=== PATIENT | female | born 1970 | race Caucasian/White ===

== ENCOUNTER → 2017-11-28 | Outpatient (CLI) | payer OTHER | LOC: FIMAGING 10:19 | PROVIDERS: ATTEND Orthopaedic Surgery | DX: Z01.818 Encounter for other preprocedural examination (principal); M17.12 Unilateral primary osteoarthritis, left knee ==

== ENCOUNTER 2018-02-05 05:57 | Observation (INO) | payer OTHER ==
[~2018-02-05 05:57] MED LIST: ROPIVACAINE 0.2% 80 MG, EPINEPHrine 0.2 MG, KETOROLAC TROMETHAMINE 30 MG, morphINE 10 M... IU ONE
[2018-02-05] MEDS ORDERED: VANCOMYCIN PHARMACY TO DOSE MISC ONE (06:00)
[2018-02-05] MEDS ORDERED: VANCOMYCIN HCL/NORMAL SALINE 250 ML IV ONE (06:00)
[2018-02-05] MEDS ORDERED: TRANEXAMIC ACID 1,000 MG in NS 100 ML IV ONE (06:00)
--- NOTE | 2018-02-05 06:20 | PDHPUP ---
History & Physical Update H&P update statement: This history and physical update is based on an assessment of the patient which was completed after admission or registration (within 24 hours), but prior to the surgery/procedure. H&P update: no change in patient's condition since H&P completed
--- NOTE | 2018-02-05 06:23 | PDIAF ---
- Diagnosis Diagnosis: left knee arthritis Code Status: Full Code - Medication Management Discharge Medications: Medications to Continue on Transfer Abilify 01/22/18 [Last Taken Unknown] Ativan 01/22/18 [Last Taken Unknown] Cymbalta 01/22/18 [Last Taken Unknown] Lamictal 01/22/18 [Last Taken Unknown] Protonix 01/22/18 [Last Taken Unknown] Provigil 01/22/18 [Last Taken Unknown] Synthroid 01/22/18 [Last Taken Unknown] Discharge Medications: Refer to the Discharge Home Medication list for PRN reason. - Orders Services needed: Physical Therapy Diet Recommendation: no restrictions on diet Diet Texture: Regular Texture Diet Activity/Weight Bearing Restrictions: wbat. rom as riley. ice prn. may shower without bandage. no soaking. daily dressing change if dressing becomes saturated. seek attn for increasing pain, cp, sob, drainage, redness or other focal complaint. f/u at two weeks Additional Instructions: wbat rom as riley ice prn may shower without bandage no soaking daily dressing change if dressing becomes saturated seek attn for increasing pain, cp, sob, drainage, redness or other focal complaint f/u at two weeks TOTAL JOINT ARTHROPLASTY DISCHARGE INSTRUCTIONS 1. Your surgeon follows the [facility] protocol for reducing your risk of DVT (blood clots) following surgery. Medication will be ordered to prevent blood clots. A sudden increase in calf pain and/or swelling could indicate a blood clot in your leg. If this occurs, please call your surgeon or his/her industrial hire sales assistant. An ultrasound of the leg may be necessary to diagnose a blood clot. If you have conditions that make you a higher risk for blood clots, your surgeon may use more aggressive ways to prevent them. Notify your surgeon if you think you are a high risk for blood clots. 2. Wear your white surgical stockings (EMILIANO hose) for 2 weeks. This decreases your swelling and may help prevent blood clots. It is ok to remove EMILIANO hose at night time to give your legs a break. 3. Swelling and bruising in the surgical leg is common. If you feel that it is excessive, please notify your surgeon. 4. Elevate your surgical leg with the ankle above the hip several times every day. Please keep the leg straight when you elevate by putting pillows under your foot. Do not put pillows under your knee. This will make being able to fully straighten more difficult. This is uncomfortable, but try to do it as much as possible. 5. For total knee replacements use compressive wrap on your knee for 3-5 days after surgery, then you can discontinue it. 6. Use a walker or crutches for 1-2 weeks. Progress your weight-bearing as tolerated. You may start to use a cane when you feel stable and safe. 7. You will receive physical therapy instructions in the hospital. Continue those exercises at home. There are additional exercises in the total joint booklet you were given before surgery. Outpatient physical therapy will begin 7- 10 days after surgery. Please schedule this in advance. 8. Use ice on your knee at least 3-5 times every day for 30 minutes. This helps reduce pain and swelling. Also use it at night before falling asleep. 9. Leave your surgical dressing in place for 2 weeks. Your dressing is water resistant, but not waterproof. Cover it with Saran Wrap or [id number] before showering. You may shower as soon as you feel safe entering a shower. If you notice bleeding from your incision 2 or 3 days after surgery, please notify your surgeon. 10. Due to narcotics, decreased activity and altered diet, most patients experience constipation after surgery. Use [id number] stool softeners while you are on narcotics. 11. You may drive a car when you are comfortable bearing weight, have good muscular control of your leg and are off narcotics. This usually occurs 2-4 weeks after surgery, depending on which leg was operated on. 12. If there are questions not addressed here, please refer the [facility] book given for more information. If you still have questions, please contact your surgeon s office. 13. If you have a life-threatening emergency, please call 911 and go to the emergency room immediately. For non-life threatening emergencies, please call your physicians office for advice before going to the emergency room. - Follow Up Care Current Providers and Referrals: BETTY HINES [Other] Catalino Roldan MD [Medical Doctor] -
[2018-02-05] MEDS ORDERED: ACETAMINOPHEN 325 MG TAB PO ONE (06:24)
[2018-02-05] MEDS ORDERED: FAMOTIDINE 20 MG TAB PO ONE (06:24)
[2018-02-05] MEDS ORDERED: LR 1,000 ML IV ONE (06:26)
[2018-02-05] MEDS ORDERED: THROMBIN (BOVINE) 5,000 UNIT VIAL TP ONE (06:59)
[2018-02-05] MEDS ORDERED: CALCIUM CHLORIDE 1 GM/10 ML INJ ONE (06:59)
--- NOTE | 2018-02-05 06:59 | PDANEPAE ---
ANE History of Present Illness 47 year old with left knee arthritis ANE Past Medical History - Cardiovascular History Hx Hypertension: No Hx Arrhythmias: No Hx Chest Pain: No Hx Coronary Artery / Peripheral Vascular Disease: No Hx CHF / Valvular Disease: No Hx Palpitations: No - Pulmonary History Hx COPD: No Hx Asthma/Reactive Airway Disease: No Hx Recent Upper Respiratory Infection: No Hx Oxygen in Use at Home: No Hx Sleep Apnea: Yes Sleep Apnea Screening Result - Last Documented: Positive Pulmonary History Comment: RODERICK uses CPAP - Neurologic History Hx Cerebrovascular Accident: No Hx Seizures: No Hx Dementia: No - Endocrine History Hx Diabetes: No - Renal History Hx Renal Disorders: Yes Renal History Comment: chronic kidney disease stage 3 - Liver History Hx Hepatic Disorders: No - Neurological & Psychiatric Hx Hx Neurological and Psychiatric Disorders: Yes Neurological / Psychiatric History Comment: anxiety and depression, bipolar - Cancer History Hx Cancer: No - Congenital Disorder History Hx Congenital Disorders: No - GI History Hx Gastrointestinal Disorders: Yes Gastrointestinal History Comment: reflux - Other Health History Other Health History: none - Chronic Pain History Chronic Pain: No - Surgical History Prior Surgeries: none ANE Review of Systems Review of systems is: negative Review of Systems: - Exercise capacity METS (RN): 4 METS ANE Patient History - Allergies Allergies/Adverse Reactions: amoxicillin [From Augmentin] Allergy (Verified 02/05/18 06:27) Vomiting clavulanic acid [From Augmentin] Allergy (Verified 02/05/18 06:27) Vomiting gabapentin Allergy (Verified 02/05/18 06:27) Other-Enter Comments metoclopramide [From Reglan] Allergy (Verified 02/05/18 06:27) Other-Enter Comments - Home Medications Home Medications: Abilify 01/22/18 [Last Taken 02/05/18 05:00] Ativan 01/22/18 [Last Taken 02/04/18 21:00] Cymbalta 01/22/18 [Last Taken 02/05/18 05:00] Lamictal 01/22/18 [Last Taken 02/05/18 05:00] Protonix 01/22/18 [Last Taken 02/05/18 02:00] Provigil 01/22/18 [Last Taken 02/03/18 0700] Synthroid 01/22/18 [Last Taken 02/04/18 02:00] - NPO status NPO Status: no food or drink >8 hours NPO Since - Liquids (Date): 02/05/18 NPO Since - Liquids (Time): 05:00 NPO Since - Solids (Date): 02/04/18 NPO Since - Solids (Time): 17:00 - Anes Hx Anes Hx: no prior problems - Smoking Hx Smoking Status: Never smoked - Family Anes Hx Family Hx Anesthesia Complications: none ANE Labs/Vital Signs - Vital Signs Blood Pressure: 108/83 Heart Rate: 61 Respiratory Rate: 16 O2 Sat (%): 93 Height: 162.56 cm Weight: 65.771 kg ANE Physical Exam - Airway Mallampati Score: Class 1 Mouth exam: normal dental/mouth exam - Pulmonary Pulmonary: no respiratory distress - Cardiovascular Cardiovascular: regular rate and rhythym - ASA Status ASA Status: II ANE Anesthesia Plan Anesthesia Plan: GA w LMA
[2018-02-05] MEDS ORDERED: ceFAZolin 1 GM/5 ML SYR ONE (07:00)
[2018-02-05] MEDS ORDERED: MIDAZOLAM 2 MG/2 ML VIAL IVP ONE (07:00)
[2018-02-05] MEDS ORDERED: fentaNYL 250 MCG/5 ML INJ ONE (07:19)
[2018-02-05] MEDS ORDERED: LIDOCAINE 2% 5 ML SDV ONE (07:19)
[2018-02-05] MEDS ORDERED: PROPOFOL 200 MG/20 ML VIAL ONE (07:19)
[2018-02-05] MEDS ORDERED: DEXAMETHASONE 4 MG/ML VIAL ONE (07:19)
[2018-02-05] MEDS ORDERED: ROPIVACAINE HCL 150 MG/30 ML INJ ONE (07:49)
[2018-02-05] MEDS ORDERED: NALOXONE HCL 0.4 MG/ML INJ IVP PRN (07:53)
[2018-02-05] MEDS ORDERED: ONDANSETRON 4 MG/2 ML VIAL IVP PRN ×2 (07:53→08:14)
[2018-02-05] MEDS ORDERED: fentaNYL 100 MCG/2 ML INJ IVP PRN (07:53)
[2018-02-05] MEDS ORDERED: PROMETHAZINE HCL 25 MG/ML INJ IVP PRN ×2 (07:53→08:14)
[2018-02-05] MEDS ORDERED: HYDROCODONE/APAP 5/325 TAB PO PRN (07:53)
[2018-02-05] MEDS ORDERED: ACETAMINOPHEN 500 MG TAB PO PRN (07:53)
[2018-02-05] MEDS ORDERED: oxyCODONE IR 5 MG TAB PO PRN (07:53)
[2018-02-05] MEDS ORDERED: ONDANSETRON DISINTEGRATING 4 MG TAB PO PRN (08:14)
[2018-02-05] MEDS ORDERED: MAGNESIUM HYDROXIDE 30 ML UDCUP PO PRN (08:14)
[2018-02-05] MEDS ORDERED: POLYETHYLENE GLYCOL 3350 17 GM PKT PO PRN (08:14)
[2018-02-05] MEDS ORDERED: CYCLOBENZAPRINE 10 MG TAB PO PRN (08:14)
[2018-02-05] MEDS ORDERED: diphenhydrAMINE 25 MG CAP PO PRN (08:14)
[2018-02-05] MEDS ORDERED: DIPHENOXYLATE/ATROPINE LOMOTIL 1 TAB PO PRN (08:14)
[2018-02-05] MEDS ORDERED: TEMAZEPAM 15 MG CAP PO PRN (08:14)
[2018-02-05] MEDS ORDERED: PROMETHAZINE HCL 25 MG SUPPR PR PRN (08:14)
[2018-02-05] MEDS ORDERED: LACTULOSE 20 GM/30 ML UDCUP PO PRN (08:14)
[2018-02-05] MEDS ORDERED: BISACODYL 10 MG SUPP PR PRN (08:14)
[2018-02-05] MEDS ORDERED: METOCLOPRAMIDE 10 MG/2 ML VIAL IVP PRN (08:14)
--- NOTE | 2018-02-05 08:18 | POSTOPPROG ---
Post Op Note Date of Operation: 02/05/18 Surgeon: Catalino Roldan Senior Risk Manager: boo Anesthesiologist: warm Anesthesia: GET(General Endotracheal) Pre-op Diagnosis: left pf arthritis Post-op Diagnosis: same Indication: same Procedure: left pf pancho Inf/Abcess present in the surg proc area at time of surgery?: No Depth: Deep Incisional (Fascial) EBL: 50-100
[2018-02-05] MEDS ORDERED: ONDANSETRON 4 MG/2 ML VIAL ONE (08:23)
[2018-02-05] MEDS ORDERED: LR 1,000 ML IV SCH (08:30)
[2018-02-05] MEDS ORDERED: HYDROmorphONE/DILAUDID 1 MG/ML INJ ONE (08:37)
[2018-02-05] MEDS: HYDROmorphONE/DILAUDID 2 MG/ML INJ IVP PRN ×4 (08:41→09:54)
[2018-02-05] MEDS ORDERED: SENNOSIDES/DOCUSATE SODIUM TAB PO SCH (09:00)
[2018-02-05] MEDS: oxyCODONE IR 5 MG TAB PO PRN ×2 (11:18→15:34)
[2018-02-05] MEDS ORDERED: ACETAMINOPHEN 325 MG TAB PO SCH (12:00)
[2018-02-05 12:22] VITALS: BP 127/82
[2018-02-05] MEDS ORDERED: FLUOCINONIDE 0.05% 15 GM CREAM TP PRN (13:45)
[2018-02-05] MEDS ORDERED: LORazepam 0.5 MG TAB PO PRN (13:45)
--- NOTE | 2018-02-05 13:55 | PDIAF ---
- Diagnosis Diagnosis: left knee arthritis Code Status: Full Code - Medication Management Discharge Medications: Medications to Continue on Transfer ARIPiprazole [Abilify] 20 mg PO DAILY 01/22/18 [Last Taken 02/05/18 05:00] DULoxetine [Cymbalta 60 MG (*)] 60 mg PO DAILY 01/22/18 [Last Taken 02/05/18 05: 00] LORazepam [Ativan (*)] 0.5 mg PO HS PRN 01/22/18 [Last Taken 02/04/18 21:00] Levothyroxine [Synthroid 112 mcg (*)] 112 mcg PO DAILY06 01/22/18 [Last Taken 02:00] Modafinil [Provigil 100 mg (*)] 125 mg PO DAILY 01/22/18 [Last Taken 02/03/18] Pantoprazole Sodium [Protonix 40mg (*)] 40 mg PO DAILY 01/22/18 [Last Taken 12/20 02:00] lamoTRIgine [LamICTAL 100 MG (*)] 200 mg PO DAILY 01/22/18 [Last Taken 02/05/18 05:00] Aspirin [Aspirin 325 mg (*)] 325 mg PO DAILY tab 02/05/18 [Last Taken Unknown] Diclofenac Sodium 1% [Voltaren Gel (*)] 1 kwadwo TD DAILY PRN 02/05/18 [Last Taken Unknown] Fluocinonide 0.05% [Lidex 0.05% Cream] 1 kwadwo TP BID PRN 02/05/18 [Last Taken Unknown] [place]-3 Fatty Acids [Fish Oil 1000 mg (*)] 1,000 mg PO BID 02/05/18 [Last Taken 01/29/18] lamoTRIgine [LamICTAL 100 MG (*)] 100 mg PO HS 02/05/18 [Last Taken 02/04/18] oxyCODONE IR [Oxycodone Ir (*)] 5 - 10 mg PO Q3HRS PRN #45 tab 02/05/18 [Last Taken Unknown] Discharge Medications: Refer to the Discharge Home Medication list for PRN reason. - Orders Services needed: Physical Therapy Diet Recommendation: no restrictions on diet Diet Texture: Regular Texture Diet Activity/Weight Bearing Restrictions: wbat. rom as riley. ice prn. may shower without bandage. no soaking. daily dressing change if dressing becomes saturated. seek attn for increasing pain, cp, sob, drainage, redness or other focal complaint. f/u at two weeks Additional Instructions: wbat rom as riley ice prn may shower without bandage no soaking daily dressing change if dressing becomes saturated seek attn for increasing pain, cp, sob, drainage, redness or other focal complaint f/u at two weeks TOTAL JOINT ARTHROPLASTY DISCHARGE INSTRUCTIONS 1. Your surgeon follows the [facility] protocol for reducing your risk of DVT (blood clots) following surgery. Medication will be ordered to prevent blood clots. A sudden increase in calf pain and/or swelling could indicate a blood clot in your leg. If this occurs, please call your surgeon or his/her physical therapy assistant. An ultrasound of the leg may be necessary to diagnose a blood clot. If you have conditions that make you a higher risk for blood clots, your surgeon may use more aggressive ways to prevent them. Notify your surgeon if you think you are a high risk for blood clots. 2. Wear your white surgical stockings (EMILIANO hose) for 2 weeks. This decreases your swelling and may help prevent blood clots. It is ok to remove EMILIANO hose at night time to give your legs a break. 3. Swelling and bruising in the surgical leg is common. If you feel that it is excessive, please notify your surgeon. 4. Elevate your surgical leg with the ankle above the hip several times every day. Please keep the leg straight when you elevate by putting pillows under your foot. Do not put pillows under your knee. This will make being able to fully straighten more difficult. This is uncomfortable, but try to do it as much as possible. 5. For total knee replacements use compressive wrap on your knee for 3-5 days after surgery, then you can discontinue it. 6. Use a walker or crutches for 1-2 weeks. Progress your weight-bearing as tolerated. You may start to use a cane when you feel stable and safe. 7. You will receive physical therapy instructions in the hospital. Continue those exercises at home. There are additional exercises in the total joint booklet you were given before surgery. Outpatient physical therapy will begin 7- 10 days after surgery. Please schedule this in advance. 8. Use ice on your knee at least 3-5 times every day for 30 minutes. This helps reduce pain and swelling. Also use it at night before falling asleep. 9. Leave your surgical dressing in place for 2 weeks. Your dressing is water resistant, but not waterproof. Cover it with Saran Wrap or [id number]-z-[id number] before showering. You may shower as soon as you feel safe entering a shower. If you notice bleeding from your incision 2 or 3 days after surgery, please notify your surgeon. 10. Due to narcotics, decreased activity and altered diet, most patients experience constipation after surgery. Use [id number] stool softeners while you are on narcotics. 11. You may drive a car when you are comfortable bearing weight, have good muscular control of your leg and are off narcotics. This usually occurs 2-4 weeks after surgery, depending on which leg was operated on. 12. If there are questions not addressed here, please refer the [facility] book given for more information. If you still have questions, please contact your surgeon s office. 13. If you have a life-threatening emergency, please call 911 and go to the emergency room immediately. For non-life threatening emergencies, please call your physicians office for advice before going to the emergency room. - Follow Up Care Current Providers and Referrals: BETTY HINES [Other] Catalino Roldan MD [Medical Doctor] -
--- NOTE | 2018-02-05 13:56 | SOAPPROG ---
SOAP Progress Note Assessment/Plan: Assessment: s/p pf replacement Plan:stable d/c home dvt precautions reviewed f/u at two weeks 02/05/18 13:55 Subjective: min pain no cp or sob riley po Objective: Vital Signs Temp Pulse Resp BP Pulse Ox 36.9 C 73 14 127/82 H 94 02/05/18 12:00 02/05/18 12:00 02/05/18 12:00 02/05/18 12:00 02/05/18 12:00 02/04/18 02/05/18 02/06/18 05:59 05:59 05:59 Intake Total 1000 Output Total 20 Balance 980 dressing clean, dry and intact intact pf,df,ehl neg homans cam[place] xrays stable ICD10 Worksheet Patient Problems: Problems Problem Status Onset Arthritis of knee Acute - ICD10 Problem Qualifiers (1) Arthritis of knee
[2018-02-05] MEDS ORDERED: ceFAZolin 2 GM/DEXTROSE 100 ML IV SCH (14:00)
[2018-02-05] MEDS ORDERED: TRANEXAMIC ACID 650 MG TAB PO SCH (16:00)
--- NOTE | 2018-02-05 16:26 | ASMTCMCOM ---
CM Note CM Note Notes: OT/PT clear pt for home. Pt medically stable for d/c, no CM d/c needs identified. Date Signed: 02/05/2018 04:26 PM Electronically Signed By:ZULAY Hernandez
[2018-02-05] MEDS ORDERED: lamoTRIgine 100 MG TAB PO SCH (21:00)
[2018-02-05] MEDS ORDERED: FAMOTIDINE 20 MG TAB PO SCH (21:00)
[2018-02-05] MEDS ORDERED: OMEGA-3 FATTY ACIDS 1,000 MG CAP PO SCH (21:00)
[2018-02-05] MEDS ORDERED: ASPIRIN 325 MG TAB PO SCH (21:00)
[2018-02-06] MEDS ORDERED: LEVOTHYROXINE 112 MCG TAB PO SCH (06:00)
[2018-02-06] MEDS ORDERED: lamoTRIgine 100 MG TAB PO SCH (09:00)
[2018-02-06] MEDS ORDERED: MODAFINIL 100 MG TAB PO SCH (09:00)
[2018-02-06] MEDS ORDERED: ARIPiprazole 10 MG TAB PO SCH (09:00)
[2018-02-06] MEDS ORDERED: PANTOPRAZOLE SODIUM 40 MG TAB PO SCH (09:00)
[2018-02-06] MEDS ORDERED: DULoxetine 60 MG CAP PO SCH (09:00)
--- NOTE | 2018-02-07 02:42 | GPROG ---
[f rep st] PROGRESS NOTE The patient was a 47-year-old woman who underwent total knee arthroplasty using spinal anesthesia and general anesthesia with adductor canal placed in the recovery room. Patient was brought to the [facility] room in stable condition. Patient's vital signs were stable. Respiratory status stable. Cardi ovascular status stable. Neuro status stable. Patient had an uneventful PACU stay. Patient was tra nsferred to the patient's room in satisfactory condition. /[id number]/MODL
== END 2018-02-05 17:05 | disposition home or self-care (01) ==
LOC: FSGY 05:57 → F3N 08:14
PROVIDERS: ADMIT Orthopaedic Surgery; ATTEND Orthopaedic Surgery
PROC: 0SUD09Z Supplement Left Knee Joint with Liner, Open Approach (ICD-10-PCS; principal; 2018-02-05 07:15)
PROC: 8E0Y0CZ Robotic Assisted Procedure of Lower Extremity, Open Approach (ICD-10-PCS; principal; 2018-02-05 07:15)
DX: M17.12 Unilateral primary osteoarthritis, left knee (principal); N18.3 Chronic kidney disease, stage 3 (moderate); E03.9 Hypothyroidism, unspecified
CPT/HCPCS: 27447; 73560; 97110; 97161; 97165; G0378; C1713; J0171; J0690; J1100; J1170; J1885; J2250; J2270; J2405; J2704; J2795; J3010; J3370

== ENCOUNTER → 2018-04-19 | Outpatient (CLI) | payer OTHER | LOC: BMCIMAGING 09:40 | PROVIDERS: ATTEND Orthopaedic Surgery | DX: Z47.1 Aftercare following joint replacement surgery (principal); M79.89 Other specified soft tissue disorders; Z96.652 Presence of left artificial knee joint ==

== ENCOUNTER → 2018-08-08 | Outpatient (CLI) | payer OTHER | LOC: BMCIMAGING 10:02 | PROVIDERS: ATTEND Orthopaedic Surgery | DX: Z47.1 Aftercare following joint replacement surgery (principal); Z96.652 Presence of left artificial knee joint ==